=== PATIENT | male | born 1995 | race Hispanic/Latino ===

== ENCOUNTER 2018-02-06 20:35 | Emergency (ER) | payer SELFPAY ==
--- NOTE | 2018-02-06 21:09 | EDPHYS ---
Physician Documentation [facility] Name: Bj Borges Jr Age: 22 yrs Sex: Male : 1995 Arrival Date: 02/06/2018 Time: 20:39 Bed 17 Private MD: ED Physician Michael Jacob HPI: 02/06 21:05 This 22 yrs old Male presents to ER via Ambulatory with complaints of Knee kb Pain. 21:05 The patient presents with pain, that is acute, swelling, tenderness. The complaints kb affect the left knee. Context: The problem was sustained at an unknown site, resulted from an unknown cause, the patient can fully bear weight, the patient is able to ambulate, Problem is a result from a previous injury: No. Onset: The symptoms/episode began/occurred today. Modifying factors: The symptoms are alleviated by nothing. the symptoms are aggravated by bending knee. Associated signs and symptoms: Pertinent positives: swelling, Pertinent negatives calf tenderness, fever, nausea, numbness, rash, tingling, vomiting, warmth, weakness. Treatment prior to arrival includes: no previous treatment. Severity of symptoms: At their worst the symptoms were mild, in the emergency department the symptoms are unchanged. The patient has not experienced similar symptoms in the past. The patient has not recently seen a physician. Pt reports pain to distal aspect of left knee. Small amount of swelling noted. Pain has gotten worse throughout the day. Ambulates without difficulty. Pain worse with bending knee. . Historical: - Allergies: 20:54 No Known Allergies; aa1 - Home Meds: 20:54 None [Active]; aa1 - PMHx: 20:54 None; aa1 - PSHx: 20:54 None; aa1 - Immunization history:: Flu vaccine is up to date. - Social history:: Smoking status: Patient uses tobacco products, smokes one-half pack cigarettes per day. ROS: 21:03 Constitutional: Negative for fever, chills, and weight loss, Cardiovascular: Negative kb for chest pain, palpitations, and edema, Respiratory: Negative for shortness of breath, cough, wheezing, and pleuritic chest pain, Abdomen/GI: Negative for abdominal pain, nausea, vomiting, diarrhea, and constipation, Skin: Negative for injury, rash, and discoloration, Neuro: Negative for headache, weakness, numbness, tingling, and seizure. 21:03 MS/extremity: Positive for pain, swelling, tenderness, of the left knee. Exam: 21:03 Constitutional: This is a well developed, well nourished patient who is awake, alert, kb and in no acute distress. Head/Face: Normocephalic, atraumatic. Chest/axilla: Normal chest wall appearance and motion. Nontender with no deformity. No lesions are appreciated. Cardiovascular: Regular rate and rhythm with a normal S1 and S2. No gallops, murmurs, or rubs. Normal PMI, no JVD. No pulse deficits. Respiratory: Lungs have equal breath sounds bilaterally, clear to auscultation and percussion. No rales, rhonchi or wheezes noted. No increased work of breathing, no retractions or nasal flaring. Abdomen/GI: Soft, non-tender, with normal bowel sounds. No distension or tympany. No guarding or rebound. No evidence of tenderness throughout. Skin: Warm, dry with normal turgor. Normal color with no rashes, no lesions, and no evidence of cellulitis. Neuro: Awake and alert, GCS 15, oriented to person, place, time, and situation. Cranial nerves II-XII grossly intact. Motor strength 5/5 in all extremities. Sensory grossly intact. Cerebellar exam normal. Normal gait. 21:03 Musculoskeletal/extremity: Extremities: grossly normal except: noted in the left knee: pain, swelling, tenderness, ROM: limited active range of motion due to pain, in the left knee, Circulation is intact in all extremities. Sensation intact. Weight bearing: able to fully bear weight. Vital Signs: 20:54 BP 106 / 85; Pulse 95; Resp 16; Temp 97.8; Pulse Ox 97% on R/A; Weight 90.72 kg; Height aa1 5 ft. 9 in. (175.26 cm); Pain 10/10; 20:54 Body Mass Index 29.53 (90.72 kg, 175.26 cm) aa1 MDM: 20:56 Patient medically screened. kb 21:03 Data reviewed: vital signs, nurses notes. Data interpreted: Pulse oximetry: on room air kb is 97 %. Interpretation: normal. Counseling: I had a detailed discussion with the patient and/or guardian regarding: the historical points, exam findings, and any diagnostic results supporting the discharge/admit diagnosis, radiology results, the need for outpatient follow up, a orthopedic surgeon, to return to the emergency department if symptoms worsen or persist or if there are any questions or concerns that arise at home. 02/06 21:08 Order name: Knee Immobilizer; Complete Time: 21:34 kb 02/06 21:08 Order name: Crutches; Complete Time: 21:35 kb Administered Medications: 21:35 Drug: traMADol 50 mg Route: PO; [facility] 21:43 Follow up: Response: No adverse reaction aj1 Disposition: 02/07 03:48 Co-signature as Attending Physician, Michael Jacob MD. gm Disposition: 02/06/18 21:08 Discharged to Home. Impression: Pain in left knee. - Condition is Stable. - Discharge Instructions: Knee Pain, [id number]. - Medication Reconciliation Form, Thank You Letter, Antibiotic Education, Prescription Opioid Use, Work release form form. - Follow up: Emergency Department; When: As needed; Reason: Worsening of condition. Follow up: Private Physician; When: 2 - 3 days; Reason: Recheck today's complaints, Continuance of care, Re-evaluation by your physician. Signatures: Claudia Zhou, SOW MANAGER-C SOW MANAGER-Genesis Redding RN RN aj1 Brynn Villar RN RN aa1 Cecil, MD MD gm Rodriguez
--- NOTE | 2018-02-06 21:09 | ER ---
Nurse's Notes [facility] Name: Bj Borges Jr Age: 22 yrs Sex: Male : 1995 Arrival Date: 02/06/2018 Time: 20:39 Bed 17 Private MD: Diagnosis: Pain in left knee Presentation: 02/06 20:52 Presenting complaint: Patient states: he woke up this am and his L knee was hurting aa1 when he would bend it. Denies injury. CMS intact. Transition of care: patient was not received from another setting of care. Onset of symptoms was February 06, 2018. Care prior to arrival: None. 20:52 Method Of Arrival: Ambulatory aa1 20:52 Acuity: RAISA 4 aa1 Triage Assessment: 20:54 General: Appears in no apparent distress. comfortable, Behavior is calm, cooperative, aa1 appropriate for age. Historical: - Allergies: 20:54 No Known Allergies; aa1 - Home Meds: 20:54 None [Active]; aa1 - PMHx: 20:54 None; aa1 - PSHx: 20:54 None; aa1 - Immunization history:: Flu vaccine is up to date. - Social history:: Smoking status: Patient uses tobacco products, smokes one-half pack cigarettes per day. Screenin:12 Abuse screen: Denies threats or abuse. Denies injuries from another. Nutritional aj1 screening: No deficits noted. Tuberculosis screening: No symptoms or risk factors identified. 21:12 Fall Risk None identified. aj1 Assessment: 21:12 General: Appears in no apparent distress. uncomfortable, Behavior is calm, cooperative, aj1 appropriate for age. Pain: Complains of pain in left knee Pain does not radiate. Pain currently is 10 out of 10 on a pain scale. Neuro: Level of Consciousness is awake, alert, obeys commands, Oriented to person, place, time, situation, Speech is normal, Facial symmetry appears normal. Cardiovascular: Patient's skin is warm and dry. Respiratory: Airway is patent Respiratory effort is even, unlabored, Respiratory pattern is regular, symmetrical. GI: No signs and/or symptoms were reported involving the gastrointestinal system. : No signs and/or symptoms were reported regarding the genitourinary system. EENT: No signs and/or symptoms were reported regarding the EENT system. Derm: No signs and/or symptoms reported regarding the dermatologic system. Skin is pink, warm \\T\\ dry. normal. Musculoskeletal: Capillary refill < 3 seconds, in left toes. Range of motion: limited in left knee Swelling present in left knee. Vital Signs: 20:54 BP 106 / 85; Pulse 95; Resp 16; Temp 97.8; Pulse Ox 97% on R/A; Weight 90.72 kg; Height aa1 5 ft. 9 in. (175.26 cm); Pain 10/10; 20:54 Body Mass Index 29.53 (90.72 kg, 175.26 cm) aa1 ED Course: 20:39 Patient arrived in ED. es 20:53 Triage completed. aa1 20:54 Arm band placed on right wrist. Patient placed in an exam room, on a stretcher. aa1 20:56 Claudia Zhou FNP-C is PHCP. kb 20:56 Michael Jacob MD is Attending Physician. kb 21:07 Genesis Hughes, RN is Primary Nurse. aj1 21:12 Patient has correct armband on for positive identification. Bed in low position. Call aj1 light in reach. 21:12 No provider procedures requiring assistance completed. aj1 21:41 Patient did not have IV access during this emergency room visit. aj1 Administered Medications: 21:35 Drug: traMADol 50 mg Route: PO; aj1 21:43 Follow up: Response: No adverse reaction aj1 Outcome: 21:08 Discharge ordered by MD. kb 21:41 Discharged to home with crutches, Patient offered wheelchair and refuses states "Its aj1 easier if I just walk" 21:41 Condition: good aj1 21:41 Discharge instructions given to patient, Instructed on discharge instructions, follow up and referral plans. Demonstrated understanding of instructions, follow-up care. 21:42 Patient left the ED. aj1 Signatures: Claudia Zhou FNP-C FNP-Genesis Redding, RN RN aj1 Brynn Villar RN RN aa1 Paola Fleming
[2018-02-06 21:47] VITALS: BP 106/85; TEMP 97.8; O2SAT 97
[2018-02-06] MEDS ORDERED: TRAMADOL HCL 50 MG TAB ONE (21:50)
== END 2018-02-06 21:42 | disposition home or self-care (01) ==
LOC: ER 20:35
DX: M25.562 Pain in left knee (principal); F17.210 Nicotine dependence, cigarettes, uncomplicated
CPT/HCPCS: 99283

== ENCOUNTER 2018-05-21 12:19 | Emergency (ER) | payer SELFPAY ==
--- OUTSIDE RECORDS SUMMARY | 2018-05-21 12:21 | XMS REPORT | Summary of Care ---
:1995 Author Organization [facility] Address [address] [address], [place] [address]- Encounter HQ Aleshia(JOSEY) [id number] Date(s): 07/03/17 - 07/03/17 [facility] [address] [place] [address]- Discharge Diagnosis: Corneal abrasion, right Discharge Disposition: Home or Self Care Attending Physician: aDgoberto Saini MD Vital Signs Most recent to oldest [Reference Range]: 1 2 Height 170.18 cm (07/03/17 8:12 PM) Temperature Oral [96.4-99.1 DegF] 98.3 DegF (07/03/17 8:12 PM) Blood Pressure [90-140/60-90 mmHg] 125/66 mmHg 151/68 mmHg (07/03/17 10:52 PM) *HI* (07/03/17 8:12 PM) Respiratory Rate [14-20 BRMIN] 18 BRMIN 15 BRMIN (07/03/17 10:52 PM) (07/03/17 8:12 PM) Peripheral Pulse Rate [60-100 bpm] 77 bpm 72 bpm (07/03/17 10:52 PM) (07/03/17 8:12 PM) Weight 81.818 kg (07/03/17 8:12 PM) Body Mass Index 28.25 m2 (07/03/17 8:12 PM) Problem List No data available for this section Allergies, Adverse Reactions, Alerts Substance Reaction Severity Status NKDA Active Medications fluorescein ophthalmic 1 mg test 1 strip, Route: Each Affected Eye, ONCE, Drug form: STRIP, Start date: 07/03/17 20:21:00 CDT, Stop date: 07/03/17 20:21:00 CDT Notes: Same as: FUL-STEPHEN Non-Formulary Item Start Date: 07/03/17 Stop Date: 07/03/17 Status: Completedlevofloxacin ophthalmic 0.5% solution 1 drp, RIGHT EYE, Q2H, X 7 day, # 5 mL, 0 Refill(s) Start Date: 07/03/17 Stop Date: 07/10/17 Status: Orderedproparacaine ophthalmic 0.5% solution 1 drp, Route: RIGHT EYE, ONCE, Drug form: SOLN, Start date: 07/03/17 21:17:00 CDT, Stop date: 07/03/17 21:17:00 CDT Notes: (Same as: Proparacaine) Start Date: 07/03/17 Stop Date: 07/03/17 Status: Completed Results No data available for this section Immunizations No data available for this section Procedures No data available for this section Social History Social History Type Response Smoking Status Never smoker; Type: Cigarettes; Ready to change: No; Concerns about tobacco use in household: No; Exposure to Tobacco Smoke None; Cigarette Smoking Last 365 Days No; Reg Smoking Cessation Counseling No Assessment and Plan No data available for this section
--- OUTSIDE RECORDS SUMMARY | 2018-05-21 12:21 | XMS REPORT | Continuity of Care Document ---
:1995 Author Organization Interface Problems Problem Status Onset Classification Date Comments Source Date Reported Discharge 07/06/2017 [facility] Diagnosis: 7 Corneal abrasion, right RT EYE PAIN Active [facility] 7 Medications Medication Details Route Status Patient Ordering Order Source Instructions Provider Date Levofloxacin 5 1 drp, Active MG/ML Ophthalmic RIGHT EYE, 017 [facility] Solution Q2H, X 7 day, # 5 mL, 0 Refill(s) Proparacaine 1 drp, Inactive hydrochloride 5 Route: 017 [facility] MG/ML Ophthalmic RIGHT EYE, Solution ONCE, Drug form: SOLN, Start date: 07/03/17 21:17:00 CDT, Stop date: 07/03/17 21:17:00 CDTNotes: (Same as: Proparacai ne) fluorescein 1 strip, Inactive ophthalmic 1 mg Route: 017 [place] test Each Affected Eye, ONCE, Drug form: STRIP, Start date: 07/03/17 20:21:00 CDT, Stop date: 07/03/17 20:21:00 CDTNotes: Same as: FUL-STEPHEN Non-Formul angela Item Allergies, Adverse Reactions, Alerts Substance Category Reaction Severity Reaction Status Date Comments Source type Reported NKDA Assertion Drug Active allergy [place] Immunizations Immunization Date Given Site Status Last Updated Comments Source Results Order Results Value Reference Date Interpretation Comments Source Name Range Vital Signs Vital Sign Value Date Comments Source Heart Rate 77 07/04/2017 [facility] Systolic (mm Hg) 125 07/04/2017 [facility] Diastolic (mm Hg) 66 07/04/2017 [facility] Respitory Rate 18 07/04/2017 [facility] Respitory Rate 15 07/04/2017 [facility] Heart Rate 72 07/04/2017 [facility] Weight 81.818 07/04/2017 [facility] Height 170.18 cm 07/04/2017 [facility] Temperature Oral (F) 98.3 F 07/04/2017 [facility] BMI Calculated 28.25 07/04/2017 [facility] Systolic (mm Hg) 151 07/04/2017 [facility] Diastolic (mm Hg) 68 07/04/2017 [facility] Encounters Location Location Encounter Encounter Reason Attending ADM DC Status Source Details Type Number For Provider Date Date Visit [facility] Emergency [id number] Dagoberto 07/04 07/04 Jak Weathers /2016 [facility] Procedures Procedure Code Date Perfomer Comments Source
[2018-05-21] MEDS ORDERED: HYDROCODONE/APAP 10/325 TAB ONE (13:57)
[2018-05-21] MEDS ORDERED: BUPIVACAINE 0.5% PF 10 ML VIAL ONE (13:57)
[2018-05-21] MEDS ORDERED: LIDOCAINE 1% MPF 5 ML VIAL ONE ×2 (13:57→13:59)
--- NOTE | 2018-05-21 15:43 | ER ---
Nurse's Notes [facility] Name: Bj Borges Jr Age: 23 yrs Sex: Male : 1995 Arrival Date: 05/21/2018 Time: 12:22 Bed Treatment Private MD: Diagnosis: Pilonidal cyst with abscess Presentation: 05/21 13:15 Presenting complaint: Patient states: hx of pilonidal cyst, last treated for it in iw Aug/sep, was supposed to follow up with surgeon but wasn't able to, abscess X 2 days. Transition of care: patient was not received from another setting of care. Onset of symptoms was May 19, 2018. Risk Assessment: Do you want to hurt yourself or someone else? Patient reports no desire to harm self or others. Initial Sepsis Screen: Does the patient meet any 2 criteria? No. Patient's initial sepsis screen is negative. Does the patient have a suspected source of infection? No. Patient's initial sepsis screen is negative. Care prior to arrival: None. 13:15 Method Of Arrival: Ambulatory iw 13:15 Acuity: RAISA 3 iw Triage Assessment: 16:00 General: Appears in no apparent distress. Behavior is calm, cooperative. iw Historical: - Allergies: 13:17 NKA; iw - Home Meds: 13:17 None [Active]; iw - PMHx: 13:17 None; iw - PSHx: 13:17 None; iw - Immunization history:: Adult Immunizations unknown. - Social history:: Smoking status: . - Ebola Screening: : Patient negative for fever greater than or equal to 101.5 degrees Fahrenheit, and additional compatible Ebola Virus Disease symptoms Patient denies exposure to infectious person Patient denies travel to an Ebola-affected area in the 21 days before illness onset No symptoms or risks identified at this time. Screenin:15 Abuse screen: Denies threats or abuse. Denies injuries from another. Nutritional iw screening: No deficits noted. Tuberculosis screening: No symptoms or risk factors identified. Fall Risk None identified. Assessment: 15:00 General: Appears in no apparent distress. uncomfortable, Behavior is calm, cooperative. iw Pain: Complains of pain in coccyx. Neuro: Level of Consciousness is awake, alert, obeys commands, Oriented to person, place, time, situation. Derm: Skin is normal, Abscess located on coccyx is half dollar sized, is hot to touch, is red, is raised, was lanced by patient prior to arrival. Musculoskeletal: Range of motion: intact in all extremities. Vital Signs: 13:50 BP 134 / 78; Pulse 87; Resp 16; Temp 98.5; Pulse Ox 100% ; Pain 10/10; iw ED Course: 12:22 Patient arrived in ED. rg4 13:10 Venessa Gates RN is Primary Nurse. iw 13:13 [facility] Stanley [facility] 13:13 Slick Murphy MD is Attending Physician. [facility] 13:16 Triage completed. iw 13:16 Arm band placed on. iw 14:30 Patient did not have IV access during this emergency room visit. iw 15:00 Patient has correct armband on for positive identification. iw 15:00 Assist provider with I \T\ D: of an abscess on pilonidal cyst Set up I\T\D tray. Performed iw by Michael FOREMAN Wound packed. iodoform gauze, Dressing with 4X4s, tape Patient tolerated well. 15:42 Be Hawkins MD is Referral Physician. [facility] Administered Medications: 14:01 Drug: [place] 10 mg-325 mg 1 tabs Route: PO; iw 14:30 Follow up: Response: No adverse reaction iw 15:00 Drug: Marcaine (0.5 %) 10 ml Volume: 10 ml; Route: Infiltration; iw 15:00 Drug: Lidocaine (1 %) 20 ml Volume: 5 ml; Route: Infiltration; iw Outcome: 15:43 Discharge ordered by . [facility] 16:20 Discharged to home ambulatory, with family. iw 16:20 Condition: good 16:20 Discharge instructions given to patient, Instructed on discharge instructions, follow up and referral plans. Demonstrated understanding of instructions, follow-up care, medications, Prescriptions given X 2. 16:21 Patient left the ED. iw Signatures: Michael Stanley PA PA jmm Williams, Irene, RN RN iw Angie Borges rg4 Corrections: (The following items were deleted from the chart) 16:31 14:30 Assist provider with I \T\ D: of an abscess on pilonidal cyst Set up I\T\D tray. iw Performed by Michael Mickail PA Wound packed. iodoform gauze, Dressing with 4X4s, tape Patient tolerated well. iw
--- NOTE | 2018-05-21 15:43 | EDPHYS ---
Physician Documentation [facility] Name: Bj Borges Jr Age: 23 yrs Sex: Male : 1995 Arrival Date: 05/21/2018 Time: 12:22 Bed Treatment Private MD: ED Physician Slick Murphy HPI: 05/21 13:51 This 23 yrs old Male presents to ER via Ambulatory with complaints of Abscess. [facility] 13:51 the patient presents with a swollen area of the coccyx. Onset: The symptoms/episode jmm began/occurred gradually, 5 day(s) ago. Possible cause(s): unknown. Associated signs and symptoms: Pertinent negatives: fever. This is a 23 year old male with a hx of pilonidal cyst that presents to the ED with 5 days of pain and swelling to his coccygeal region. Patient denies fever. . Historical: - Allergies: 13:17 NKA; iw - Home Meds: 13:17 None [Active]; iw - PMHx: 13:17 None; iw - PSHx: 13:17 None; iw - Immunization history:: Adult Immunizations unknown. - Social history:: Smoking status: . - Ebola Screening: : Patient negative for fever greater than or equal to 101.5 degrees Fahrenheit, and additional compatible Ebola Virus Disease symptoms Patient denies exposure to infectious person Patient denies travel to an Ebola-affected area in the 21 days before illness onset No symptoms or risks identified at this time. ROS: 13:51 Constitutional: Negative for fever, chills, and weight loss. [facility] 13:51 Skin: Positive for erythema, swelling, pain. 13:51 All other systems are negative. Exam: 13:51 Head/Face: atraumatic. Cardiovascular: Regular rate and rhythm. No edema appreciated [facility] Respiratory: Normal respirations, no respiratory distress appreciated Abdomen/GI: Non distended, soft Back: Normal ROM 13:51 Constitutional: The patient appears in no acute distress, alert, awake. 13:51 Skin: swelling with bloody drainage noted to the right superior gluteal cleft, induration appreciated. 13:51 Neuro: Orientation: is normal, Mentation: is normal, Memory: is normal. Vital Signs: 13:50 BP 134 / 78; Pulse 87; Resp 16; Temp 98.5; Pulse Ox 100% ; Pain 10/10; iw Procedures: 21:56 I \T\ D: Incision and drainage was performed for an abscess of the pilonidal cyst Prepped jmm with Betadine, Anesthetized with 15 ml's 1% Lidocaine. Incised with #11 blade. Drained moderate amount purulent fluid. Packed with iodoform gauze, Dressing: sterile 4x4 gauze, the patient tolerated the procedure well. MDM: 13:35 Patient medically screened. [facility] 15:41 Data reviewed: vital signs, nurses notes. [facility] Administered Medications: 14:01 Drug: [place] 10 mg-325 mg 1 tabs Route: PO; iw 14:30 Follow up: Response: No adverse reaction iw 15:00 Drug: Marcaine (0.5 %) 10 ml Volume: 10 ml; Route: Infiltration; iw 15:00 Drug: Lidocaine (1 %) 20 ml Volume: 5 ml; Route: Infiltration; iw Disposition: 05/21/18 15:43 Discharged to Home. Impression: Pilonidal cyst with abscess. - Condition is Stable. - Discharge Instructions: Abscess, Pilonidal Cyst. - Prescriptions for Tylenol- Codeine #3 300-30 mg Oral Tablet - take 1 tablet by ORAL route every 6 hours As needed; 20 tablet. Bactrim DS 800- 160 mg Oral Tablet - take 1 tablet by ORAL route every 12 hours for 10 days; 20 tablet. - Medication Reconciliation Form, Thank You Letter, Antibiotic Education, Prescription Opioid Use, Work release form form. - Follow up: Be Hawkins MD; When: 2 - 3 days; Reason: Continuance of care. Addendum: 05/29/2018 20:43 Co-signature as Attending Physician, Slick Murphy MD I agree with the assessment and k dr plan of care. Signatures: Slick Murphy MD MD [facility] Michael Stanley PA PA [facility] Venessa Gates RN RN iw Corrections: (The following items were deleted from the chart) 05/21 16:21 15:43 05/21/2018 15:43 Discharged to Home. Impression: Pilonidal cyst with abscess. iw Condition is Stable. Forms are Medication Reconciliation Form, Thank You Letter, Antibiotic Education, Prescription Opioid Use. Follow up: Be Hawkins; When: 2 - 3 days; Reason: Continuance of care. [facility]
== END 2018-05-21 16:21 | disposition home or self-care (01) ==
LOC: ER 12:19
PROC: 0H98XZZ Drainage of Buttock Skin, External Approach (ICD-10-PCS; principal; 2018-05-21)
DX: L05.01 Pilonidal cyst with abscess (principal)
CPT/HCPCS: 99283

== ENCOUNTER 2018-06-29 15:45 | Emergency (ER) | payer SELFPAY ==
--- OUTSIDE RECORDS SUMMARY | 2018-06-29 15:47 | XMS REPORT | Continuity of Care Document ---
:1995 Author Organization Interface Problems Problem Status Onset Classification Date Comments Source Date Reported Discharge 07/06/2017 [facility] Diagnosis: 7 Corneal abrasion, right RT EYE PAIN Active [facility] 7 Medications Medication Details Route Status [...] Date Comments Source Heart Rate 77 07/04/2017 [facility] Systolic (mm Hg) 125 07/04/2017 [facility] Diastolic (mm Hg) 66 07/04/2017 [facility] Respitory Rate 18 07/04/2017 [facility] Respitory Rate 15 07/04/2017 [facility] Heart Rate 72 07/04/2017 [facility] Weight 81.818 07/04/2017 [facility] Height 170.18 cm 07/04/2017 [facility] Temperature Oral (F) 98.3 F 07/04/2017 [facility] BMI Calculated 28.25 07/04/2017 [facility] Systolic (mm Hg) 151 07/04/2017 [facility] Diastolic (mm Hg) 68 07/04/2017 [facility] Encounters Location Location Encounter Encounter Reason Attending ADM DC Status Source Details Type Number For Provider Date Date Visit [facility] Emergency [id number] Dagoberto 07/04 07/04 Jak Weathers /2016 [facility] Procedures Procedure Code Date Perfomer Comments Source
[2018-06-29] MEDS ORDERED: LIDOCAINE 1% MPF 5 ML VIAL ONE (16:21)
--- NOTE | 2018-06-29 16:44 | EDPHYS ---
Physician Documentation [facility] Name: Bj Borges Jr Age: 23 yrs Sex: Male : 1995 Arrival Date: 06/29/2018 Time: 15:47 Bed 15 Private MD: None, None ED Physician Slick Murphy HPI: 06/29 16:18 This 23 yrs old Male presents to ER via Ambulatory with complaints of Abscess. kb 16:20 The patient presents with an abscess of the gluteal cleft. Description: erythematous, kb fluctuant, swollen, warm. Onset: The symptoms/episode began/occurred last week. Possible cause(s): unknown. Associated signs and symptoms: Pertinent positives: erythema, swelling, Pertinent negatives: discharge, drainage, foreign body sensation, fever, headache, nausea, shortness of breath, vomiting. Modifying factors: the symptoms are alleviated by nothing, the symptoms are aggravated by movement, pressure, sitting, squeezing the lesion and expressing the contents, touching. Severity of symptoms: At their worst the symptoms were moderate, in the emergency department the symptoms are unchanged. The patient has experienced similar episodes in the past. The patient has been recently seen at the [facility] Emergency Department, last month, for similar complaints. Historical: - Allergies: 15:58 NKA; sg - Home Meds: 15:58 None [Active]; sg - PMHx: 15:58 None; sg - PSHx: 15:58 None; sg - Immunization history:: Adult Immunizations not up to date. - Social history:: Smoking status: Patient uses tobacco products, smokes one pack cigarettes per day. - Ebola Screening: : Patient negative for fever greater than or equal to 101.5 degrees Fahrenheit, and additional compatible Ebola Virus Disease symptoms Patient denies exposure to infectious person Patient denies travel to an Ebola-affected area in the 21 days before illness onset No symptoms or risks identified at this time. ROS: 16:19 Constitutional: Negative for fever, chills, and weight loss, Cardiovascular: Negative kb for chest pain, palpitations, and edema, Respiratory: Negative for shortness of breath, cough, wheezing, and pleuritic chest pain, Abdomen/GI: Negative for abdominal pain, nausea, vomiting, diarrhea, and constipation, Back: Negative for injury and pain, : Negative for injury, bleeding, discharge, and swelling, MS/Extremity: Negative for injury and deformity, Neuro: Negative for headache, weakness, numbness, tingling, and seizure. 16:19 Skin: Positive for abscess, of the gluteal cleft. Exam: 16:19 Constitutional: This is a well developed, well nourished patient who is awake, alert, kb and in no acute distress. Head/Face: Normocephalic, atraumatic. Chest/axilla: Normal chest wall appearance and motion. Nontender with no deformity. No lesions are appreciated. Cardiovascular: Regular rate and rhythm with a normal S1 and S2. No gallops, murmurs, or rubs. Normal PMI, no JVD. No pulse deficits. Respiratory: Lungs have equal breath sounds bilaterally, clear to auscultation and percussion. No rales, rhonchi or wheezes noted. No increased work of breathing, no retractions or nasal flaring. Abdomen/GI: Soft, non-tender, with normal bowel sounds. No distension or tympany. No guarding or rebound. No evidence of tenderness throughout. MS/ Extremity: Pulses equal, no cyanosis. Neurovascular intact. Full, normal range of motion. Neuro: Awake and alert, GCS 15, oriented to person, place, time, and situation. Cranial nerves II-XII grossly intact. Motor strength 5/5 in all extremities. Sensory grossly intact. Cerebellar exam normal. Normal gait. 16:19 Skin: abscess, that is moderate sized, of the gluteal cleft, with fluctuance. Vital Signs: 15:59 BP 150 / 79; Pulse 100 MON; Resp 16; Temp 99.0; Pulse Ox 98% on R/A; Pain 7/10; sg 17:08 BP 142 / 72; Pulse 87; Resp 18; Temp 98.0; Pulse Ox 99% on R/A; ph Procedures: 16:42 I \T\ D: Incision and drainage was performed for an abscess of the right pilonidal cyst kb Prepped with Betadine, Anesthetized with 2 ml's 1% Lidocaine. Incised with #11 blade. Drained large amount purulent fluid. Cultures obtained. Abscess cavity explored. Packed with iodoform gauze, Dressing: sterile 4x4 gauze, the patient tolerated the procedure well. MDM: 15:59 Patient medically screened. kb 16:19 Data reviewed: vital signs, nurses notes. Data interpreted: Pulse oximetry: on room air kb is 98 %. Interpretation: normal. Counseling: I had a detailed discussion with the patient and/or guardian regarding: the historical points, exam findings, and any diagnostic results supporting the discharge/admit diagnosis, the need for outpatient follow up, a general surgeon, to return to the emergency department if symptoms worsen or persist or if there are any questions or concerns that arise at home. 06/29 16:05 Order name: Wound Culture kb 06/29 16:05 Order name: I\T\D Setup; Complete Time: 16:24 kb Administered Medications: 16:30 Drug: Lidocaine (1 %) 1 vials Volume: 20 ml; Route: Infiltration; ph 17:10 Follow up: Response: No adverse reaction ph 16:56 Drug: [place] 5 mg-325 mg 1 tabs Route: PO; ph 17:10 Follow up: Response: No adverse reaction ph 16:57 Drug: Clindamycin 300 mg Route: PO; ph 17:10 Follow up: Response: No adverse reaction ph Disposition: 19:08 Co-signature as Attending Physician, Slick Murphy MD I agree with the assessment and kdr plan of care. Disposition: 06/29/18 16:43 Discharged to Home. Impression: Pilonidal cyst with abscess. - Condition is Stable. - Discharge Instructions: Pilonidal Cyst, Incision and Drainage of a Pilonidal Cyst, Care After. - Prescriptions for Clindamycin HCl 300 mg Oral Capsule - take 1 capsule by ORAL route every 6 hours for 10 days; 40 capsule. - Work release form, Medication Reconciliation Form, Thank You Letter, Antibiotic Education, Prescription Opioid Use form. - Follow up: Emergency Department; When: As needed; Reason: Worsening of condition. Follow up: Private Physician; When: 2 - 3 days; Reason: Recheck today's complaints, Continuance of care, Re-evaluation by your physician. Signatures: Dispatcher [employer] Claudia Newton FNP-C FNP-Ckb Gay, Steven, RN RN sg Slick Murphy MD MD kdr Hall, Patricia RN RN ph Corrections: (The following items were deleted from the chart) 17:10 16:43 06/29/2018 16:43 Discharged to Home. Impression: Pilonidal cyst with abscess. ph Condition is Stable. Forms are Medication Reconciliation Form, Thank You Letter, Antibiotic Education, Prescription Opioid Use. Follow up: Emergency Department; When: As needed; Reason: Worsening of condition. Follow up: Private Physician; When: 2 - 3 days; Reason: Recheck today's complaints, Continuance of care, Re-evaluation by your physician. kb
--- NOTE | 2018-06-29 16:44 | ER ---
Nurse's Notes [facility] Name: Bj Borges Jr Age: 23 yrs Sex: Male : 1995 Arrival Date: 06/29/2018 Time: 15:47 Bed 15 Private MD: None, None Diagnosis: Pilonidal cyst with abscess Presentation: 06/29 15:57 Presenting complaint: Patient states: Sangita had an abscess in the same spot before, right sg gluteal fold. pt reports having been told he needed sx in the past, pt states this one is a little different because it feels like there is fluid inside and its going to burst. I really just want the antibiotics and go home to pop it myself cause when they numb it up it didn't really work out too well last time. Transition of care: patient was not received from another setting of care. Onset of symptoms was June 29, 2018. Risk Assessment: Do you want to hurt yourself or someone else? Patient reports no desire to harm self or others. Initial Sepsis Screen: Does the patient meet any 2 criteria? No. Patient's initial sepsis screen is negative. Does the patient have a suspected source of infection? Yes: Skin breakdown/wound. Care prior to arrival: None. 15:57 Method Of Arrival: Ambulatory sg 15:57 Acuity: RAISA 4 sg Historical: - Allergies: 15:58 NKA; sg - Home Meds: 15:58 None [Active]; sg - PMHx: 15:58 None; sg - PSHx: 15:58 None; sg - Immunization history:: Adult Immunizations not up to date. - Social history:: Smoking status: Patient uses tobacco products, smokes one pack cigarettes per day. - Ebola Screening: : Patient negative for fever greater than or equal to 101.5 degrees Fahrenheit, and additional compatible Ebola Virus Disease symptoms Patient denies exposure to infectious person Patient denies travel to an Ebola-affected area in the 21 days before illness onset No symptoms or risks identified at this time. Screenin:10 Abuse screen: Denies threats or abuse. Denies injuries from another. Nutritional ph screening: No deficits noted. Tuberculosis screening: No symptoms or risk factors identified. Fall Risk None identified. Assessment: 16:08 General: Appears in no apparent distress. uncomfortable, Behavior is calm, cooperative, ph appropriate for age, Reports chills for 1-2 days. Pain: Complains of pain in gluteal cleft. Neuro: Level of Consciousness is awake, alert, obeys commands, Oriented to person, place, time, situation. Cardiovascular: Capillary refill < 3 seconds Patient's skin is warm and dry. Respiratory: Airway is patent Respiratory effort is even, unlabored, Respiratory pattern is regular, symmetrical. GI: Patient currently denies diarrhea, nausea, vomiting. Derm: Skin is intact, is healthy with good turgor, Skin is pink, warm \T\ dry. Abscess located on gluteal cleft is quarter sized, has no drainage, is hot to touch, is red, is raised. Musculoskeletal: Circulation, motion, and sensation intact. Range of motion: intact in all extremities. 17:07 Reassessment: Patient appears in no apparent distress at this time. Patient and/or ph family updated on plan of care and expected duration. Pain level reassessed. Patient is alert, oriented x 3, equal unlabored respirations, skin warm/dry/pink. Pt given work note and d/c home. Vital Signs: 15:59 BP 150 / 79; Pulse 100 MON; Resp 16; Temp 99.0; Pulse Ox 98% on R/A; Pain 7/10; sg 17:08 BP 142 / 72; Pulse 87; Resp 18; Temp 98.0; Pulse Ox 99% on R/A; ph ED Course: 15:47 Patient arrived in ED. sb2 15:48 None, None is Private Physician. sb2 15:58 Triage completed. sg 15:59 Claudia Zhou FNP-C [facility]. kb 15:59 Slick Murphy MD is Attending Physician. kb 15:59 Arm band placed on. sg 16:07 Kadi Turner, ALICE is Primary Nurse. ph 16:10 Patient has correct armband on for positive identification. Bed in low position. Call ph light in reach. Side rails up X2. Pulse ox on. NIBP on. Warm blanket given. 16:30 Assist provider with I \T\ D: of an abscess on right pilonidal cyst Set up I\T\D tray. ph Performed by Claudia DÍAZ Culture sent to lab. Wound packed. iodoform gauze, Dressing with 4X4s, tape Patient tolerated well. 17:09 Patient did not have IV access during this emergency room visit. ph Administered Medications: 16:30 Drug: Lidocaine (1 %) 1 vials Volume: 20 ml; Route: Infiltration; ph 17:10 Follow up: Response: No adverse reaction ph 16:56 Drug: [place] 5 mg-325 mg 1 tabs Route: PO; ph 17:10 Follow up: Response: No adverse reaction ph 16:57 Drug: Clindamycin 300 mg Route: PO; ph 17:10 Follow up: Response: No adverse reaction ph Outcome: 16:43 Discharge ordered by . melodie 17:09 Discharged to home ambulatory, with significant other. ph 17:09 Condition: good 17:09 Discharge instructions given to patient, Instructed on discharge instructions, follow up and referral plans. medication usage, Demonstrated understanding of instructions, follow-up care, medications, Prescriptions given X 1. 17:10 Patient left the ED. ph Signatures: Claudia Zhou, INTERACTIVE DEVELOPER-C HUGO-Kole Conklin RN ALICE Kadi Turner RN RN Catarina Zamora sb2
[2018-06-29] MEDS ORDERED: HYDROCODONE/APAP 5/325 MG TAB ONE (16:56)
[2018-06-29] MEDS ORDERED: CLINDAMYCIN HCL 150 MG CAP ONE (16:56)
[2018-06-29 17:15] VITALS: BP 142/72; TEMP 98; O2SAT 99
== END 2018-06-29 17:10 | disposition home or self-care (01) ==
LOC: ER 15:45
PROC: 0H98XZZ Drainage of Buttock Skin, External Approach (ICD-10-PCS; principal; 2018-06-29)
DX: L05.01 Pilonidal cyst with abscess (principal); F17.210 Nicotine dependence, cigarettes, uncomplicated
CPT/HCPCS: 87070; 87205; 99284

== ENCOUNTER 2018-10-23 15:31 | Emergency (ER) | payer SELFPAY ==
--- OUTSIDE RECORDS SUMMARY | 2018-10-23 15:32 | XMS REPORT | Continuity of Care Document ---
:1995 Author Organization Interface Problems Problem Status Onset Classification Date Comments Source Date Reported Discharge 07/06/2017 [facility] Diagnosis: 7 Corneal abrasion, right RT EYE PAIN Active [facility] 7 Medications Medication Details Route Status [...] Reaction Status Date Comments Source type Reported Immunizations Immunization Date Given Site Status Last Updated Comments Source Results Order Results Value Reference Date Interpretation Comments Source Name Range Vital Signs Vital Sign Value Date Comments Source Heart Rate 77 07/04/2017 [facility] Systolic (mm Hg) 125 07/04/2017 [facility] Diastolic (mm Hg) 66 07/04/2017 [facility] Respitory Rate 18 07/04/2017 [facility] Respitory Rate 15 07/04/2017 [facility] Heart Rate 72 07/04/2017 [facility] Weight 81.818 07/04/2017 [facility] Height 170.18 cm 07/04/2017 [facility] Temperature Oral (F) 98.3 F 07/04/2017 [facility] BMI Calculated 28.25 07/04/2017 [facility] Systolic (mm Hg) 151 07/04/2017 [facility] Diastolic (mm Hg) 68 07/04/2017 [facility] Encounters Location Location Encounter Encounter Reason Attending ADM DC Status Source Details Type Number For Provider Date Date Visit [facility] Emergency [id number] Dagoberto 07/04 07/04 Jak Weathers /2016 [facility] Procedures Procedure Code Date Perfomer Comments Source
--- NOTE | 2018-10-23 16:02 | EDPHYS ---
Physician Documentation [facility] Name: Bj Borges Jr Age: 23 yrs Sex: Male : 1995 Arrival Date: 10/23/2018 Time: 15:34 Bed 24 Private MD: ED Physician José Luis Gómez HPI: 10/23 16:13 This 23 yrs old Male presents to ER via Ambulatory with complaints of Cyst. snw 16:13 Onset: The symptoms/episode began/occurred suddenly. Associated signs and symptoms: snw Pertinent positives: The patient does not have any pertinent positive signs or symptoms associated with pediatric illness. Modifying factors: The patient symptoms are alleviated by nothing. The patient has experienced similar episodes in the past, multiple times, but today's symptoms are not as bad as this previous episode. The patient has not recently seen a physician, will have insurance in 45 days. Historical: - Allergies: 15:51 NKA; aj - Home Meds: 15:51 None [Active]; aj - PMHx: 15:51 None; aj - PSHx: 15:51 None; aj - Immunization history:: Adult Immunizations up to date. - Social history:: Smoking status: Patient uses tobacco products, smokes one pack cigarettes per day. - Ebola Screening: : Patient negative for fever greater than or equal to 101.5 degrees Fahrenheit, and additional compatible Ebola Virus Disease symptoms Patient denies exposure to infectious person Patient denies travel to an Ebola-affected area in the 21 days before illness onset No symptoms or risks identified at this time. ROS: 16:12 Constitutional: Negative for fever, chills, and weight loss, Eyes: Negative for injury, snw pain, redness, and discharge, ENT: Negative for injury, pain, and discharge, Neck: Negative for injury, pain, and swelling, Cardiovascular: Negative for chest pain, palpitations, and edema, Respiratory: Negative for shortness of breath, cough, wheezing, and pleuritic chest pain, Abdomen/GI: Negative for abdominal pain, nausea, vomiting, diarrhea, and constipation, Back: Negative for injury and pain, : Negative for injury, bleeding, discharge, and swelling, MS/Extremity: Negative for injury and deformity, Skin: Negative for injury, rash, and discoloration, multiple episodes of tx for pilonidal cyst (7 in this ED). Neuro: Negative for headache, weakness, numbness, tingling, and seizure, Psych: Negative for depression, anxiety, suicide ideation, homicidal ideation, and hallucinations. Exam: 16:11 Constitutional: This is a well developed, well nourished patient who is awake, alert, snw and in no acute distress. Head/Face: Normocephalic, atraumatic. Eyes: Pupils equal round and reactive to light, extra-ocular motions intact. Lids and lashes normal. Conjunctiva and sclera are non-icteric and not injected. Cornea within normal limits. Periorbital areas with no swelling, redness, or edema. ENT: Nares patent. No nasal discharge, no septal abnormalities noted. Tympanic membranes are normal and external auditory canals are clear. Oropharynx with no redness, swelling, or masses, exudates, or evidence of obstruction, uvula midline. Mucous membranes moist. Neck: Trachea midline, no thyromegaly or masses palpated, and no cervical lymphadenopathy. Supple, full range of motion without nuchal rigidity, or vertebral point tenderness. No Meningismus. Chest/axilla: Normal chest wall appearance and motion. Nontender with no deformity. No lesions are appreciated. Cardiovascular: Regular rate and rhythm with a normal S1 and S2. No gallops, murmurs, or rubs. Normal PMI, no JVD. No pulse deficits. Respiratory: Lungs have equal breath sounds bilaterally, clear to auscultation and percussion. No rales, rhonchi or wheezes noted. No increased work of breathing, no retractions or nasal flaring. Abdomen/GI: Soft, non-tender, with normal bowel sounds. No distension or tympany. No guarding or rebound. No evidence of tenderness throughout. Male : Normal genitalia with no discharge or lesions. Skin: Warm, dry with normal turgor. Normal color with no rashes, no lesions, and no evidence of cellulitis. MS/ Extremity: Pulses equal, no cyanosis. Neurovascular intact. Full, normal range of motion. Neuro: Awake and alert, GCS 15, oriented to person, place, time, and situation. Cranial nerves II-XII grossly intact. Motor strength 5/5 in all extremities. Sensory grossly intact. Cerebellar exam normal. Normal gait. 16:11 Back: pain, that is mild, of the sacrum, ROM is normal, CVA tenderness, is absent, muscle spasm, is not present. Vital Signs: 15:51 BP 135 / 70; Pulse 92; Resp 20; Temp 99.1; Pulse Ox 98% on R/A; Weight 95.25 kg; Height aj 5 ft. 9 in. (175.26 cm); 16:10 BP 129 / 76; Pulse 80; Resp 16; Temp 98.6(O); Pulse Ox 100% on R/A; Pain 2/10; ed1 15:51 Body Mass Index 31.01 (95.25 kg, 175.26 cm) aj MDM: 15:57 Patient medically screened. snw 16:11 Data reviewed: vital signs, nurses notes. Data interpreted: Pulse oximetry: on room air snw is 100 %. Interpretation: normal. Counseling: I had a detailed discussion with the patient and/or guardian regarding: the historical points, exam findings, and any diagnostic results supporting the discharge/admit diagnosis, the need for outpatient follow up, to return to the emergency department if symptoms worsen or persist or if there are any questions or concerns that arise at home. Special discussion: Based on the history and exam findings, there is no indication for further emergent testing or inpatient evaluation. I discussed with the patient/guardian the need to see the general surgeon for further evaluation of the symptoms. I discussed with the patient/guardian the need to see the primary care provider for further evaluation of the symptoms. Administered Medications: 16:09 Drug: Bactrim (160 mg-800 mg (DS) 1 tablet Route: PO; ed1 16:09 Follow up: Response: Medication administered at discharge. ed1 Disposition: 10/24 06:38 Co-signature as Attending Physician, José Luis Gómez MD I agree with the assessment and nadia plan of care. Disposition: 10/23/18 16:01 Discharged to Home. Impression: Pilonidal cyst without abscess. - Condition is Stable. - Discharge Instructions: Pilonidal Cyst, How to Take a Sitz Bath. - Prescriptions for Bactrim DS 800- 160 mg Oral Tablet - take 1 tablet by ORAL route every 12 hours for 10 days; 20 tablet. - Medication Reconciliation Form, Thank You Letter, Antibiotic Education, Prescription Opioid Use form. - Follow up: Dimitri Garcia MD; When: As needed; Reason: Recheck today's complaints, Continuance of care. Signatures: Yissel Lang, José Luis Khanna RN, MD MD cha Therrien, Shelly, MACHINE I ENGRAVER-C MACHINE I ENGRAVER-Csnw Eileen Salinas, WINSOME RECONSTRUCTIVE DENTIST ed1 Corrections: (The following items were deleted from the chart) 10/23 16:13 16:01 10/23/2018 16:01 Discharged to Home. Impression: Pilonidal cyst without abscess. ed1 Condition is Stable. Forms are Medication Reconciliation Form, Thank You Letter, Antibiotic Education, Prescription Opioid Use. Follow up: Dimitri Garcia; When: As needed; Reason: Recheck today's complaints, Continuance of care. snw
--- NOTE | 2018-10-23 16:02 | ER ---
Nurse's Notes [facility] Name: Bj Borges Jr Age: 23 yrs Sex: Male : 1995 Arrival Date: 10/23/2018 Time: 15:34 Bed 24 Private MD: Diagnosis: Pilonidal cyst without abscess Presentation: 10/23 15:49 Presenting complaint: Patient states: Dx with pilonidial cyst 3 years ago. Reports he aj is beginning to have pressure in same area and would like to start on ABX before it becomes too painful. Transition of care: patient was not received from another setting of care. Onset of symptoms was October 21, 2018. Risk Assessment: Do you want to hurt yourself or someone else? Patient reports no desire to harm self or others. Initial Sepsis Screen: Does the patient meet any 2 criteria? No. Patient's initial sepsis screen is negative. Does the patient have a suspected source of infection? No. Patient's initial sepsis screen is negative. Care prior to arrival: None. 15:49 Method Of Arrival: Ambulatory 15:49 Acuity: RAISA 3 aj Triage Assessment: 15:51 General: Appears in no apparent distress. comfortable, Behavior is calm, cooperative, aj appropriate for age. Pain: Denies pain. Neuro: Level of Consciousness is awake, alert, obeys commands, Oriented to person, place, time, situation, Appropriate for age. Respiratory: Airway is patent Respiratory effort is even, unlabored, Respiratory pattern is regular, symmetrical. Derm: Skin is intact, is healthy with good turgor, Skin is pink, warm \T\ dry. normal, Abscess located on coccyx. Historical: - Allergies: 15:51 NKA; aj - Home Meds: 15:51 None [Active]; aj - PMHx: 15:51 None; aj - PSHx: 15:51 None; aj - Immunization history:: Adult Immunizations up to date. - Social history:: Smoking status: Patient uses tobacco products, smokes one pack cigarettes per day. - Ebola Screening: : Patient negative for fever greater than or equal to 101.5 degrees Fahrenheit, and additional compatible Ebola Virus Disease symptoms Patient denies exposure to infectious person Patient denies travel to an Ebola-affected area in the 21 days before illness onset No symptoms or risks identified at this time. Screenin:55 Abuse screen: Denies threats or abuse. Denies injuries from another. Nutritional ed1 screening: No deficits noted. Tuberculosis screening: No symptoms or risk factors identified. Fall Risk None identified. Assessment: 16:10 Reassessment: Patient appears in no apparent distress at this time. No changes from ed1 previously documented assessment. Patient and/or family updated on plan of care and expected duration. Pain level reassessed. Patient is alert, oriented x 3, equal unlabored respirations, skin warm/dry/pink. Vital Signs: 15:51 BP 135 / 70; Pulse 92; Resp 20; Temp 99.1; Pulse Ox 98% on R/A; Weight 95.25 kg; Height aj 5 ft. 9 in. (175.26 cm); 16:10 BP 129 / 76; Pulse 80; Resp 16; Temp 98.6(O); Pulse Ox 100% on R/A; Pain 2/10; ed1 15:51 Body Mass Index 31.01 (95.25 kg, 175.26 cm) aj ED Course: 15:34 Patient arrived in ED. as 15:50 Triage completed. aj 15:51 Arm band placed on left wrist. Patient placed in an exam room. aj 15:54 Eileen Salinas LVN is Primary Nurse. ed1 15:55 Mahsa James FNP-C is PHCP. snw 15:55 José Luis Gómez MD is Attending Physician. snw 15:55 Patient has correct armband on for positive identification. Bed in low position. Call ed1 light in reach. Adult w/ patient. 16:01 Dimitri Garcia MD is Referral Physician. snw 16:10 No provider procedures requiring assistance completed. Patient did not have IV access ed1 during this emergency room visit. Administered Medications: 16:09 Drug: Bactrim (160 mg-800 mg (DS) 1 tablet Route: PO; ed1 16:09 Follow up: Response: Medication administered at discharge. ed1 Outcome: 16:01 Discharge ordered by . snw 16:10 Discharged to home ambulatory. ed1 16:10 Condition: good 16:10 Discharge instructions given to patient, Instructed on discharge instructions, follow up and referral plans. medication usage, Demonstrated understanding of instructions, follow-up care, medications, Prescriptions given X 1. 16:13 Patient left the ED. ed1 Signatures: Yissel Lang RN RN Mahsa Simon, PROGRAM AIDE-C PROGRAM AIDE-Csnw Rita Garcia Erika, HAND TOUCH UP PAINTER HAND TOUCH UP PAINTER ed1
[2018-10-23] MEDS ORDERED: SMZ./TMP. 800/160 MG TABLET ONE (16:16)
[2018-10-23 18:24] VITALS: BP 129/76; TEMP 98.6; O2SAT 100
== END 2018-10-23 16:13 | disposition home or self-care (01) ==
LOC: ER 15:31
DX: L05.91 Pilonidal cyst without abscess (principal); F17.210 Nicotine dependence, cigarettes, uncomplicated
CPT/HCPCS: 99283

== ENCOUNTER 2018-10-25 14:41 | Emergency (ER) | payer SELFPAY ==
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
[2018-10-25] MEDS ORDERED: CLINDAMYCIN IV 150 MG/ML (4 mL) VIAL ONE (15:46)
[2018-10-25] MEDS ORDERED: HYDROCODONE/APAP 5/325 MG TAB ONE (15:57)
--- NOTE | 2018-10-25 16:03 | ER ---
Nurse's Notes [facility] Name: Bj Borges Jr Age: 23 yrs Sex: Male : 1995 Arrival Date: 10/25/2018 Time: 14:44 Bed 13 Private MD: None, None Diagnosis: Encounter for re-evaluation of pilonidal cyst Presentation: 10/25 14:54 Presenting complaint: Patient states: Seen here on Sun and dx w/ pilonidal cyst, ph states, " I started taking the Bactrim on Sun but I don't think it's helping. It feels like it's getting bigger and it's hurting more." Cyst noted to R gluteal cleft, pt denies drainage, reports fatigue, nausea, fever and chills, denies vomiting. Transition of care: patient was not received from another setting of care. Onset of symptoms was October 25, 2018. Risk Assessment: Do you want to hurt yourself or someone else? Patient reports no desire to harm self or others. Initial Sepsis Screen: Does the patient meet any 2 criteria? No. Patient's initial sepsis screen is negative. Does the patient have a suspected source of infection? Yes: Skin breakdown/wound. Care prior to arrival: None. 14:54 Method Of Arrival: Ambulatory ph 14:54 Acuity: RAISA 4 ph Historical: - Allergies: 14:58 NKA; ph - Home Meds: 14:58 Bactrim DS Oral [Active]; ph - PMHx: 14:58 Pilonidol Cyst; ph - PSHx: 14:58 None; ph - Immunization history:: Adult Immunizations unknown. - Social history:: Smoking status: Patient uses tobacco products, smokes one pack cigarettes per day. - Ebola Screening: : No symptoms or risks identified at this time. Screenin:55 Abuse screen: Denies threats or abuse. Nutritional screening: No deficits noted. rb1 Tuberculosis screening: No symptoms or risk factors identified. Fall Risk None identified. Assessment: 14:55 General: Appears uncomfortable, Behavior is calm, cooperative, Reports chills for fever rb1 for fatigue for Wednesday. Pain: Complains of pain in coccyx Pain currently is 10 out of 10 on a pain scale. Aggravated by weight bearing. Neuro: Level of Consciousness is awake, alert, obeys commands, Oriented to person, place, time, situation. Cardiovascular: Capillary refill < 3 seconds is brisk in bilateral fingers. Respiratory: Airway is patent Respiratory effort is even, unlabored, Respiratory pattern is regular, symmetrical. GI: Reports diarrhea, nausea. : No signs and/or symptoms were reported regarding the genitourinary system. Derm: Skin is dry, Skin is normal, Skin temperature is warm Coccyx is reddened. 15:50 Reassessment: Patient appears in no apparent distress at this time. No changes from rb1 previously documented assessment. Vital Signs: 14:57 BP 151 / 89; Pulse 101; Resp 20; Temp 98.7(TE); Pulse Ox 96% on R/A; Weight 95.25 kg; ph Height 5 ft. 9 in. (175.26 cm); Pain 10/10; 16:25 BP 140 / 80; Pulse 85; Resp 18; Pulse Ox 100% on R/A; Pain 0/10; mg2 14:57 Body Mass Index 31.01 (95.25 kg, 175.26 cm) ph ED Course: 14:44 Patient arrived in ED. mr 14:45 None, None is Private Physician. mr 14:55 Patient has correct armband on for positive identification. Bed in low position. Call rb1 light in reach. Side rails up X 1. Pulse ox on. NIBP on. 14:57 Triage completed. ph 14:59 Arm band placed on. ph 15:14 Vita Ferguson RN is Primary Nurse. rb1 15:19 Mahsa James FNP-C is [facility]. snw 15:19 Xander Veliz MD is Attending Physician. snw 15:49 Thomas Campoverde MD is Referral Physician. snw 16:00 Report given to ALICE Decker. rb1 16:25 No provider procedures requiring assistance completed. Patient did not have IV access mg2 during this emergency room visit. Administered Medications: 15:40 Drug: Clindamycin 600 mg {Note: 2 ml left gluteus, 2 ml right gluteus.} Route: IM; rb1 Site: left gluteus; 16:08 Follow up: Response: No adverse reaction mg2 15:49 Drug: [place] 5 mg-325 mg 1 tabs Route: PO; rb1 16:07 Follow up: Response: No adverse reaction mg2 Outcome: 16:03 Discharge ordered by MD. snw 16:25 Discharged to home ambulatory, with family. mg2 16:25 Condition: stable 16:25 Discharge instructions given to patient, family, Instructed on discharge instructions, follow up and referral plans. medication usage, Demonstrated understanding of instructions, follow-up care, medications, Prescriptions given X 2. 16:26 Patient left the ED. mg2 Signatures: Mahsa James, PAROLE BOARD MEMBER-C PAROLE BOARD MEMBER-Csnw Autumn Maguire Patricia RN RN Vita Ferguson, ALICE RN [facility] Jeronimo White RN RN mg2
--- NOTE | 2018-10-25 16:03 | EDPHYS ---
Physician Documentation [facility] Name: Bj Borges Jr Age: 23 yrs Sex: Male : 1995 Arrival Date: 10/25/2018 Time: 14:44 Bed 13 Private MD: None, None ED Physician Xander Veliz HPI: 10/25 15:47 This 23 yrs old Male presents to ER via Ambulatory with complaints of Cyst. snw 15:47 Patient presents to ED for recheck of: abscess. The affected area is on the coccyx. snw Previous treatment: The patient was initially treated 2 day(s) ago, Treatment type: The patient's original treatment included oral antibiotics, Bactrim, Outpatient prescription(s): The patient was given prescription(s) for Bactrim, diclofenac. Progress: The patient reports mild increase in erythema. The patient has experienced similar episodes in the past, chronically. The patient has been recently seen by a physician: 2 day(s) ago, with similar presenting complaints, but the patient's symptoms have persisted. Historical: - Allergies: 14:58 NKA; ph - Home Meds: 14:58 Bactrim DS Oral [Active]; ph - PMHx: 14:58 Pilonidol Cyst; ph - PSHx: 14:58 None; ph - Immunization history:: Adult Immunizations unknown. - Social history:: Smoking status: Patient uses tobacco products, smokes one pack cigarettes per day. - Ebola Screening: : No symptoms or risks identified at this time. ROS: 15:47 Constitutional: Negative for fever, chills, and weight loss, Eyes: Negative for injury, snw pain, redness, and discharge, ENT: Negative for injury, pain, and discharge, Neck: Negative for injury, pain, and swelling, Cardiovascular: Negative for chest pain, palpitations, and edema, Respiratory: Negative for shortness of breath, cough, wheezing, and pleuritic chest pain, Abdomen/GI: Negative for abdominal pain, nausea, vomiting, diarrhea, and constipation, : Negative for injury, bleeding, discharge, and swelling, MS/Extremity: Negative for injury and deformity, Skin: Negative for injury, rash, and discoloration, Neuro: Negative for headache, weakness, numbness, tingling, and seizure. 15:47 Back: Positive for pilonidal cyst feels worse. Exam: 15:45 Constitutional: This is a well developed, well nourished patient who is awake, alert, snw and in no acute distress. Head/Face: Normocephalic, atraumatic. Eyes: Pupils equal round and reactive to light, extra-ocular motions intact. Lids and lashes normal. Conjunctiva and sclera are non-icteric and not injected. Cornea within normal limits. Periorbital areas with no swelling, redness, or edema. ENT: Nares patent. No nasal discharge, no septal abnormalities noted. Tympanic membranes are normal and external auditory canals are clear. Oropharynx with no redness, swelling, or masses, exudates, or evidence of obstruction, uvula midline. Mucous membranes moist. Neck: Trachea midline, no thyromegaly or masses palpated, and no cervical lymphadenopathy. Supple, full range of motion without nuchal rigidity, or vertebral point tenderness. No Meningismus. Chest/axilla: Normal chest wall appearance and motion. Nontender with no deformity. No lesions are appreciated. Cardiovascular: Regular rate and rhythm with a normal S1 and S2. No gallops, murmurs, or rubs. Normal PMI, no JVD. No pulse deficits. Respiratory: Lungs have equal breath sounds bilaterally, clear to auscultation and percussion. No rales, rhonchi or wheezes noted. No increased work of breathing, no retractions or nasal flaring. Abdomen/GI: Soft, non-tender, with normal bowel sounds. No distension or tympany. No guarding or rebound. No evidence of tenderness throughout. Back: No spinal tenderness. No costovertebral tenderness. Full range of motion. upper coccyx with erythema, tenderness, no single, drainable area Skin: Warm, dry with normal turgor. Normal color with no rashes, no lesions, and no evidence of cellulitis. MS/ Extremity: Pulses equal, no cyanosis. Neurovascular intact. Full, normal range of motion. Neuro: Awake and alert, GCS 15, oriented to person, place, time, and situation. Cranial nerves II-XII grossly intact. Motor strength 5/5 in all extremities. Sensory grossly intact. Cerebellar exam normal. Normal gait. Psych: Awake, alert, with orientation to person, place and time. Behavior, mood, and affect are within normal limits. Vital Signs: 14:57 BP 151 / 89; Pulse 101; Resp 20; Temp 98.7(TE); Pulse Ox 96% on R/A; Weight 95.25 kg; ph Height 5 ft. 9 in. (175.26 cm); Pain 10/10; 16:25 BP 140 / 80; Pulse 85; Resp 18; Pulse Ox 100% on R/A; Pain 0/10; mg2 14:57 Body Mass Index 31.01 (95.25 kg, 175.26 cm) ph MDM: 15:19 Patient medically screened. snw 16:14 Data reviewed: vital signs, nurses notes. Data interpreted: Pulse oximetry: on room air snw is 96 %. Interpretation: hypoxia. Counseling: I had a detailed discussion with the patient and/or guardian regarding: the historical points, exam findings, and any diagnostic results supporting the discharge/admit diagnosis, the presence of at least one elevated blood pressure reading (>120/80) during this emergency department visit, the need for outpatient follow up, for definitive care, to return to the emergency department if symptoms worsen or persist or if there are any questions or concerns that arise at home. Special discussion: I have referred the patient to see his PCP for further evaluation of high blood pressure. I discussed in detail with the patient the higher chance of wound infection based on his presenting history. Based on the history and exam findings, there is no indication for further emergent testing or inpatient evaluation. I discussed with the patient/guardian the need to see the general surgeon for further evaluation of the symptoms. I discussed with the patient/guardian the need to see the primary care provider for further evaluation of the symptoms. Administered Medications: 15:40 Drug: Clindamycin 600 mg {Note: 2 ml left gluteus, 2 ml right gluteus.} Route: IM; rb1 Site: left gluteus; 16:08 Follow up: Response: No adverse reaction mg2 15:49 Drug: [place] 5 mg-325 mg 1 tabs Route: PO; rb1 16:07 Follow up: Response: No adverse reaction mg2 Disposition: 17:52 Co-signature as Attending Physician, Xander Veliz MD. rn Disposition: 10/25/18 16:03 Discharged to Home. Impression: Encounter for re-evaluation of pilonidal cyst. - Condition is Stable. - Discharge Instructions: Pilonidal Cyst, How to Take a Sitz Bath. - Prescriptions for Clindamycin HCl 300 mg Oral Capsule - take 1 capsule by ORAL route every 6 hours for 10 days; 40 capsule. Tylenol- Codeine #3 300-30 mg Oral Tablet - take 2 tablet by ORAL route every 6 hours As needed; 6 tablet. - Work release form, Medication Reconciliation Form, Thank You Letter, Antibiotic Education, Prescription Opioid Use form. - Follow up: Thomas Campoverde MD; When: 2 - 3 days; Reason: Recheck today's complaints, Continuance of care, Re-evaluation by your physician. Signatures: Mahsa James, SUIT MAKER-C SUIT MAKER-Csnw Xander Veliz MD MD rn Kadi Turner RN RN Vita Ferguson RN RN [facility] Jeronimo White RN RN mg2 Corrections: (The following items were deleted from the chart) 16:26 16:03 10/25/2018 16:03 Discharged to Home. Impression: Encounter for re-evaluation of mg2 pilonidal cyst. Condition is Stable. Forms are Medication Reconciliation Form, Thank You Letter, Antibiotic Education, Prescription Opioid Use. Follow up: Dr. Thomas Campoverde; When: 2 - 3 days; Reason: Recheck today's complaints, Continuance of care, Re-evaluation by your physician. snw
[2018-10-25 16:32] VITALS: TEMP 98.7
[2018-10-25 16:33] VITALS: BP 140/80; O2SAT 100
== END 2018-10-25 16:26 | disposition home or self-care (01) ==
LOC: ER 14:41
DX: L05.91 Pilonidal cyst without abscess (principal); F17.210 Nicotine dependence, cigarettes, uncomplicated
CPT/HCPCS: 96372; 99283; S0077

== ENCOUNTER 2019-03-26 06:30 | Emergency (ER) | payer SELFPAY ==
--- OUTSIDE RECORDS SUMMARY | 2019-03-26 06:33 | XMS REPORT | Continuity of Care Document ---
:1995 Author Organization Interface Problems Problem Status Onset Classification Date Comments Source Date Reported Discharge 07/06/2017 [facility] Diagnosis: 7 Corneal abrasion, right RT EYE PAIN Active [facility] 7 Medications Medication Details Route Status Patient [...] Date Comments Source Heart Rate 77 07/04/2017 [facility] Systolic (mm Hg) 125 07/04/2017 [facility] Diastolic (mm Hg) 66 07/04/2017 [facility] Respitory Rate 18 07/04/2017 [facility] Respitory Rate 15 07/04/2017 [facility] Heart Rate 72 07/04/2017 [facility] Weight 81.818 07/04/2017 [facility] Height 170.18 cm 07/04/2017 [facility] Temperature Oral (F) 98.3 F 07/04/2017 [facility] BMI Calculated 28.25 07/04/2017 [facility] Systolic (mm Hg) 151 07/04/2017 [facility] Diastolic (mm Hg) 68 07/04/2017 [facility] Encounters Location Location Encounter Encounter Reason Attending ADM DC Status Source Details Type Number For Provider Date Date Visit [facility] Emergency [id number] Dagoberto 07/04 07/04 Jak Weathers /2016 [facility] Procedures Procedure Code Date Perfomer Comments Source
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
[2019-03-26] MEDS ORDERED: LIDOCAINE 1% W/EPI 1:100,000 MDV 50 ML VIAL ONE (07:50)
[2019-03-26 08:00] LABS: Absolute Lymphocytes (CBC) 3.2 K/uL (0.7-4.9); Absolute Monocytes 1.3 K/uL (0.1-1.3); Absolute Neutrophil 19.8 K/uL (1.8-8.0); Basophils % 0.2 % (0-1.3); Eosinophils % 0.6 % (0-4.4); Hematocrit 49.3 % (39.6-49.0); Lymphocytes % 13.2 % (15.3-44.8); MPV 8.3 fL (7.6-11.3); Monocytes % 5.1 % (3.3-12.3); RBC Red Blood Cell Count 5.47 M/uL (4.33-5.43)
[2019-03-26 08:19] LABS: BUN Blood Urea Nitrogen 8 mg/dL (7-18); Bicarbonate 20 mmol/L (21-32); Glucose Level 90 mg/dL (74-106); Potassium 3.2 mmol/L (3.5-5.1); Sodium Level 141 mmol/L (136-145)
[2019-03-26] MEDS ORDERED: NA CHLORIDE 0.9% 1,000 ML ONE (08:52)
[2019-03-26 08:59] LABS: Blood Morphology Comment NOT SEEN (NOT SEEN); Platelet Estimate ADEQ
[2019-03-26] MEDS ORDERED: POTASSIUM 25 MEQ EFFERV TAB ONE (09:45)
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
[2019-03-26 12:08] VITALS: TEMP 98.1
[2019-03-26 12:13] VITALS: O2SAT 100
[2019-03-26 12:15] VITALS: BP 124/60
== END 2019-03-26 12:02 | disposition home or self-care (01) ==
LOC: ER 06:30
PROC: 0JQ10ZZ Repair Face Subcutaneous Tissue and Fascia, Open Approach (ICD-10-PCS; principal; 2019-03-26)
DX: S01.81XA Laceration without foreign body of other part of head, initial encounter (principal); S20.219A Contusion of unspecified front wall of thorax, initial encounter; Y00.XXXA Assault by blunt object, initial encounter; Y93.9 Activity, unspecified; Y92.89 Other specified places as the place of occurrence of the external cause; F17.210 Nicotine dependence, cigarettes, uncomplicated
CPT/HCPCS: 36415; 70450; 71260; 72125; 74177; 80048; 80320; 85025; 86850; 86900; 86901; 96360; 99284; J7030; Q9967

== ENCOUNTER 2019-04-27 18:53 | Emergency (ER) | payer SELFPAY ==
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
--- NOTE | 2019-04-27 20:21 | ER ---
Nurse's Notes [facility] Name: Bj Borges Jr Age: 24 yrs Sex: Male : 1995 Arrival Date: 04/27/2019 Time: 18:57 Bed 23 Private MD: Diagnosis: Streptococcal pharyngitis Presentation: 04/27 19:07 Presenting complaint: Patient states: "sickness" pt c/o dizziness, congestion, fatigue ak1 X1 day. Transition of care: patient was not received from another setting of care. Onset of symptoms was April 27, 2019. Risk Assessment: Do you want to hurt yourself or someone else? Patient reports no desire to harm self or others. Initial Sepsis Screen: Does the patient meet any 2 criteria? No. Patient's initial sepsis screen is negative. Does the patient have a suspected source of infection? No. Patient's initial sepsis screen is negative. Note pt sent home from work and needs work excuse to return. Care prior to arrival: None. 19:07 Method Of Arrival: Ambulatory ak1 19:07 Acuity: RAISA 4 ak1 Triage Assessment: 19:09 Headache History: Other pt c/o dizziness with congestion. General: Appears in no ak1 apparent distress. Behavior is calm, cooperative. Pain: Pain currently is 3 out of 10 on a pain scale. EENT: nasal congestion . 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 Gait is steady, Speech is normal, Facial symmetry appears normal. Cardiovascular: No deficits noted. Respiratory: No deficits noted. GI: No signs and/or symptoms were reported involving the gastrointestinal system. : No signs and/or symptoms were reported regarding the genitourinary system. Derm: No signs and/or symptoms reported regarding the dermatologic system. Musculoskeletal: No signs and/or symptoms reported regarding the musculoskeletal system. 19:51 Pain: Pain began gradually, Also complains of no other associated symptoms. ca1 Historical: - Allergies: 19:09 NKA; ak1 - Home Meds: 19:09 None [Active]; ak1 - PMHx: 19:09 Pilonidol Cyst; ak1 - PSHx: 19:09 None; ak1 - Immunization history:: Adult Immunizations unknown. - Social history:: Smoking status: Patient uses tobacco products, smokes one-half pack cigarettes per day. - Ebola Screening: : No symptoms or risks identified at this time. Screenin:47 Abuse screen: Denies threats or abuse. Denies injuries from another. Nutritional ca1 screening: No deficits noted. Tuberculosis screening: No symptoms or risk factors identified. Fall Risk None identified. Assessment: 19:47 General: Appears in no apparent distress. comfortable, Behavior is calm, cooperative, ca1 appropriate for age. General: Reports chills for feeling ill for 12-24 hours. Pain: Denies pain. Neuro: Level of Consciousness is awake, alert, obeys commands, Oriented to person, place, time, situation, Reports headache in entire since last night. Cardiovascular: Heart tones S1 S2 present Capillary refill < 3 seconds Patient's skin is warm and dry. Respiratory: Airway is patent Respiratory effort is even, unlabored, Respiratory pattern is regular, symmetrical, Breath sounds are clear bilaterally. Respiratory: Reports cough that is. GI: GI: Abdomen is round non-distended, Bowel sounds present X 4 quads. Abd is soft and non tender X 4 quads. : No deficits noted. No signs and/or symptoms were reported regarding the genitourinary system. EENT: Throat is pink Reports nasal congestion since yesterday. Derm: Skin is intact, is healthy with good turgor, Skin is pink, warm \\T\\ dry. Musculoskeletal: Circulation, motion, and sensation intact. Capillary refill < 3 seconds, Range of motion: intact in all extremities. Vital Signs: 19:09 BP 141 / 83; Pulse 105; Resp 16; Temp 98.6; Pulse Ox 96% on R/A; Weight 95.25 kg (R); ak1 Height 5 ft. 9 in. (175.26 cm); Pain 4/10; 19:47 BP 132 / 77; Pulse 97; Resp 15; Temp 100(O); Pulse Ox 98% on R/A; ca1 20:38 BP 110 / 78; Pulse 90; Resp 17 S; Temp 97.8; Pulse Ox 100% on R/A; ca1 19:09 Body Mass Index 31.01 (95.25 kg, 175.26 cm) ak1 ED Course: 18:57 Patient arrived in ED. mr 19:09 Triage completed. ak1 19:09 Arm band placed on Patient placed in waiting room, Patient notified of wait time. ak1 19:44 Kathe Marmolejo, ALICE is Primary Nurse. ca1 19:45 Luis Enrique Eden MD is Attending Physician. gs 19:47 Patient has correct armband on for positive identification. Bed in low position. Call ca1 light in reach. Side rails up X 1. Pulse ox on. NIBP on. Warm blanket given. 19:47 No provider procedures requiring assistance completed. ca1 19:52 Patient did not have IV access during this emergency room visit. ca1 Administered Medications: 20:36 Drug: Ibuprofen 600 mg Route: PO; ca1 20:38 Follow up: Response: Medication administered at discharge. ca1 20:36 Drug: Amoxicillin 875 mg Route: PO; ca1 20:36 Follow up: Response: Medication administered at discharge. ca1 Outcome: 20:20 Discharge ordered by . gs 20:40 Discharged to home ambulatory. ca1 20:40 Condition: stable 20:40 Discharge instructions given to patient, Instructed on discharge instructions, follow up and referral plans. medication usage, Demonstrated understanding of instructions, follow-up care, medications, Prescriptions given X 1. 20:41 Patient left the ED. ca1 Signatures: Andrez Autumn ParraParadise, RN RN ak1 Luis Enrique Eden MD MD Kathe Marmolejo RN RN ca1
--- NOTE | 2019-04-27 20:21 | EDPHYS ---
Physician Documentation [facility] Name: Bj Borges Jr Age: 24 yrs Sex: Male : 1995 Arrival Date: 04/27/2019 Time: 18:57 Bed 23 Private MD: ED Physician Luis Enrique Eden HPI: 04/27 20:19 This 24 yrs old Male presents to ER via Ambulatory with complaints of Sore gs Throat. 20:19 The patient presents with sore throat. Onset: The symptoms/episode began/occurred gs yesterday. Severity of symptoms: At their worst the symptoms were moderate, in the emergency department the symptoms are unchanged. Associated signs and symptoms: Pertinent positives: chills, fever, flu-like symptoms, malaise, headache. The patient has experienced similar episodes in the past, a few times. The patient has not recently seen a physician. Historical: - Allergies: 19:09 NKA; ak1 - Home Meds: 19:09 None [Active]; ak1 - PMHx: 19:09 Pilonidol Cyst; ak1 - PSHx: 19:09 None; ak1 - Immunization history:: Adult Immunizations unknown. - Social history:: Smoking status: Patient uses tobacco products, smokes one-half pack cigarettes per day. - Ebola Screening: : No symptoms or risks identified at this time. ROS: 20:19 All other systems are negative. gs Exam: 20:19 Head/Face: Normocephalic, atraumatic. Eyes: Pupils equal round and reactive to light, gs extra-ocular motions intact. Lids and lashes normal. Conjunctiva and sclera are non-icteric and not injected. Cornea within normal limits. Periorbital areas with no swelling, redness, or edema. Neck: Trachea midline, no thyromegaly or masses palpated, and no cervical lymphadenopathy. Supple, full range of motion without nuchal rigidity, or vertebral point tenderness. No Meningismus. Chest/axilla: Normal chest wall appearance and motion. Nontender with no deformity. No lesions are appreciated. Cardiovascular: Regular rate and rhythm with a normal S1 and S2. No gallops, murmurs, or rubs. Normal PMI, no JVD. No pulse deficits. Respiratory: Lungs have equal breath sounds bilaterally, clear to auscultation and percussion. No rales, rhonchi or wheezes noted. No increased work of breathing, no retractions or nasal flaring. Abdomen/GI: Soft, non-tender, with normal bowel sounds. No distension or tympany. No guarding or rebound. No evidence of tenderness throughout. Back: No spinal tenderness. No costovertebral tenderness. Full range of motion. Skin: Warm, dry with normal turgor. Normal color with no rashes, no lesions, and no evidence of cellulitis. MS/ Extremity: Pulses equal, no cyanosis. Neurovascular intact. Full, normal range of motion. Neuro: Awake and alert, GCS 15, oriented to person, place, time, and situation. Cranial nerves II-XII grossly intact. Motor strength 5/5 in all extremities. Sensory grossly intact. Cerebellar exam normal. Normal gait. 20:19 Constitutional: The patient appears alert, awake. 20:19 ENT: TM's: are normal, Posterior pharynx: erythema, that is moderate. Vital Signs: 19:09 BP 141 / 83; Pulse 105; Resp 16; Temp 98.6; Pulse Ox 96% on R/A; Weight 95.25 kg (R); ak1 Height 5 ft. 9 in. (175.26 cm); Pain 4/10; 19:47 BP 132 / 77; Pulse 97; Resp 15; Temp 100(O); Pulse Ox 98% on R/A; ca1 20:38 BP 110 / 78; Pulse 90; Resp 17 S; Temp 97.8; Pulse Ox 100% on R/A; ca1 19:09 Body Mass Index 31.01 (95.25 kg, 175.26 cm) ak1 MDM: 19:57 Patient medically screened. gs 20:19 Data reviewed: vital signs, nurses notes, lab test result(s). Counseling: I had a gs detailed discussion with the patient and/or guardian regarding: the historical points, exam findings, and any diagnostic results supporting the discharge/admit diagnosis, the presence of at least one elevated blood pressure reading (>120/80) during this emergency department visit, lab results, the need for outpatient follow up. Response to treatment: the patient's symptoms have markedly improved after treatment, and as a result, I will admit patient. Special discussion: I have referred the patient to see his PCP for further evaluation of high blood pressure. 04/27 19:11 Order name: Flu; Complete Time: 20:20 ak1 04/27 19:11 Order name: Strep; Complete Time: 20:20 ak1 Administered Medications: 20:36 Drug: Ibuprofen 600 mg Route: PO; ca1 20:38 Follow up: Response: Medication administered at discharge. ca1 20:36 Drug: Amoxicillin 875 mg Route: PO; ca1 20:36 Follow up: Response: Medication administered at discharge. ca1 Disposition: 04/27/19 20:20 Discharged to Home. Impression: Streptococcal pharyngitis. - Condition is Stable. - Discharge Instructions: Strep Throat. - Prescriptions for Amoxicillin 875 mg Oral Tablet - take 1 tablet by ORAL route every 12 hours for 10 days; 20 tablet. - Medication Reconciliation Form, Thank You Letter, Antibiotic Education, Prescription Opioid Use form. - Work release form (04/27/19 20:41). ar5 - Follow up: Private Physician; When: 2 - 3 days; Reason: Re-evaluation by your physician. Signatures: Dispatcher [employer] Paradise Eason RN RN ak1 Luis Enrique Eden MD MD Kathe Marmolejo RN RN ca1 Selene Garcia ar5 Corrections: (The following items were deleted from the chart) 20:41 20:20 04/27/2019 20:20 Discharged to Home. Impression: Streptococcal pharyngitis. ca1 Condition is Stable. Forms are Medication Reconciliation Form, Thank You Letter, Antibiotic Education, Prescription Opioid Use. Follow up: Private Physician; When: 2 - 3 days; Reason: Re-evaluation by your physician. xiao
[2019-04-27] MEDS ORDERED: IBUPROFEN 400 MG TAB ONE (20:50)
[2019-04-27] MEDS ORDERED: IBUPROFEN 200 MG TAB PO ONE (20:50)
[2019-04-27] MEDS ORDERED: AMOX/K CLAV 875 MG TAB ONE (20:50)
[2019-04-27 22:18] VITALS: BP 110/78; TEMP 97.8; O2SAT 100
== END 2019-04-27 20:41 | disposition home or self-care (01) ==
LOC: ER 18:53
DX: J02.0 Streptococcal pharyngitis (principal); F17.210 Nicotine dependence, cigarettes, uncomplicated
CPT/HCPCS: 87081; 87804; 99283